=== PATIENT | female | born 1975 | race Caucasian/White ===

== ENCOUNTER → 2016-04-15 | Outpatient (REF) | payer MEDICARE, MEDICAID ==
[~2016-04-15] MED LIST: /ESOM40CA PO; /HYDR10T PO; /LEVE75TA PO; ABIL2TAB PO; ALEV220C2 PO; AMBI10TA PO; CLON2TAB PO; COLA50CA3 PO; DOXY100T PO; GABA-283 PO; GABA300C2 PO; GABA300C3 PO; HYDR-4274 PO; HYDR50CA2 PO; KEPP500T4 PO; KLON2TAB PO; LORA10TA2 PO; LYRI75CA PO; MELO7.5T6 PO; MINI1CAP PO; MIRA3350 PO; NEUR800T PO; NEXI20GR PO; NEXI40CA PO; NEXI40GR PO; NYST-6 TOP; OXYC1TAB23 PO; PRIS100T PO; REME15TA PO; TOPA200T PO; TRAM50TA2 PO; VALI2TAB PO; VENL37TA PO; VENL75CA PO; VIST50CA PO; ZOLP-189 PO
[2016-04-15 12:48] LABS: ALBUMIN 3.4 GM/DL (3.2-5.2); ALBUMIN/GLOBULIN RATIO 0.79 (1.00-1.93); ALKALINE PHOSPHATASE 55 U/L (45-117); ALT/SGPT 18 U/L (12-78); AST/SGOT 10 U/L (15-37); BILIRUBIN,DIRECT < 0.1 MG/DL (0.0-0.2); BILIRUBIN,TOTAL 0.3 MG/DL (0.2-1.0); TOTAL PROTEIN 7.7 GM/DL (6.4-8.2)
[2016-04-16 15:23] LABS: CONTROL LINE INT CTR LINE PRESENT; HIV SCRN NEGATIVE (NEGATIVE); HIV SCRN1 NEGATIVE (NEGATIVE)
[2016-04-17 10:42] LABS: HEPATITIS C QUANTITATION HCV Not Detected IU/mL (.)
== END ==
LOC: M SFHCPLAZ 09:16
PROVIDERS: ATTEND Family Medicine
DX: R73.03 Prediabetes (principal); B18.2 Chronic viral hepatitis C; Z20.6 Contact with and (suspected) exposure to human immunodeficiency virus [HIV]; Z79.891 Long term (current) use of opiate analgesic; Z79.899 Other long term (current) drug therapy
CPT/HCPCS: 80076; 83036; 87522; 87806; G0463

== ENCOUNTER → 2016-05-12 | Outpatient (REF) | payer MEDICARE, MEDICAID ==
[2016-05-12 13:46] LABS: MEAN CORPUSCULAR HEMOGLOBIN 30.6 pg (27.0-33.0); MEAN CORPUSCULAR HGB CONC 33.4 g/dl (32.0-36.5); MEAN CORPUSCULAR VOLUME 91.5 fl (80.0-96.0); WHITE BLOOD COUNT 6.7 K/mm3 (4.0-10.0)
[2016-05-12 14:35] LABS: PERCENT SATURATION 20.4 % (13.2-37.4)
== END ==
LOC: M SFHCPLAZ 11:12
PROVIDERS: ATTEND Family Medicine
DX: N92.1 Excessive and frequent menstruation with irregular cycle (principal)
CPT/HCPCS: 36415; 83550; 85027; G0463

== ENCOUNTER 2016-05-13 20:55 | Emergency (ER) | payer MEDICARE, MEDICAID ==
[2016-05-13] MEDS ORDERED: ONDANSETRON 4 MG ORAL DISINTEGRATING TAB (S0181) As Ordered ONE (21:57)
--- NOTE | 2016-05-13 22:06 | EDDOCDS ---
Physician Documentation [facility] Name: Doris Hermosillo Age: 40 yrs Sex: Female : 1975 Arrival Date: 05/13/2016 Time: 20:55 Bed TR1 Private MD: Yoni Proctor M. Disposition: 05/13/16 21:56 Discharged to Home/Self Care. Impression: Acute nasopharyngitis [common cold], Viral infection, unspecified. - Condition is Stable. - Discharge Instructions: Cool Mist Vaporizers, Upper Respiratory Infection, Adult, Beey-mb-Geik, Viral Infections, [id number]-[id number]. - Medication Reconciliation, Local Pharmacy Hours form. - Follow up: Yoni Proctor; When: Call to arrange an appointment; Reason: Further diagnostic work-up, Recheck today's complaints, Continuance of care. - Problem is new. - Symptoms are unchanged. Historical: - Allergies: Ceftin (Hives); - Home Meds: 1. doxycycline hyclate 100 mg Oral cap 1 cap every 12 hours 2. gabapentin 300 mg Oral cap 3 times per day 3. gabapentin 400 mg Oral cap 1 cap four times a day 4. Imitrex Oral Unknown as needed 5. loratadine 10 mg Oral tab 1 tab once daily 6. Nexium 40 mg Oral cpDR 1 cap once daily 7. Docusate Sodium Oral 8. ferrous sulfate 325 mg (65 mg iron) Oral TbEC daily 9. Truvada oral oral 1 tab once daily 10. trazodone 50 mg Oral tab 1 tab nightly 11. Pristiq 100 mg Oral Tb24 1 tab once daily 12. tramadol 50 mg Oral tab 1 tab three times a day - PMHx: Anxiety; back pain; Depression; GERD; MRSA; PTSD; Seizures; Substance Abuse; uterine fibroids; - PSHx: Cholecystectomy; ; Tubes in ears; - Social history: Smoking status: Patient uses tobacco products, current every day smoker. No barriers to communication noted, The patient speaks fluent Greenlandic. - Family history: Not pertinent. - : The pt / caregiver states he / she is not on anticoagulants. Home medication list is obtained from the patient. - Exposure Risk Screening:: None identified. 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 6 in. (167.64 cm) (R); Pain 4/10; 22:00 BP 116 / 58; Pulse 78; Resp 18; Temp 97.8(O); Pulse Ox 98% on R/A; Pain 0/10; jmb 20:57 Body Mass Index 40.03 (112.49 kg, 167.64 cm) gr2 MDM: 21:56 Ondansetron ODT Oral Disintegrating Tablet 4 mg PO once ordered. btw Administered Medications: 21:57 Drug: Ondansetron ODT 4 mg [ondansetron 4 mg disintegrating tablet (1 tabs)] Route: PO; allyn Signatures: Theron Bose PA PA btMulugeta Aguirre RN RN jmb Smith, Mallory, RN RN ms18 MTDD
--- NOTE | 2016-05-13 22:06 | EDDOCDS ---
Nurse's Notes [facility] Name: Doris Hermosillo Age: 40 yrs Sex: Female : 1975 Arrival Date: 05/13/2016 Time: 20:55 Bed TR1 Private MD: Yoni Proctor M. Diagnosis: Acute nasopharyngitis [common cold];Viral infection, unspecified Presentation: 05/13 21:04 Presenting complaint: Patient states: that she is having chest congestion, nasal ms18 congestion, NV, and lower abd pain. Adult Sepsis Screening: The patient does not have new or worsening altered mentation. Patient's respiratory rate is less than 22. Systolic blood pressure is greater than 100. Patient has a qSOFA score of 0- Negative Sepsis Screen. Suicide/Homicide risk assessment- the patient denies having any suicidal and/or homicidal ideations and does not present with any other emotional, behavioral or mental health complaints. Status: Patient is not a television service engineer or dependent. Transition of care: patient was not received from another setting of care. 21:04 Acuity: LEE Level 3 ms18 21:04 Method Of Arrival: Walkin/Carried/Asstd ms18 Triage Assessment: 21:10 General: Appears in no apparent distress, obese, uncomfortable, Behavior is appropriate ms18 for age, cooperative. Pain: Location: abdomen Pain currently is 8 out of 10 on a pain scale. HIV screening NA for this visit Offered previously. Neurological: No deficits noted. Respiratory: Airway is patent Respiratory effort is even, unlabored. GI: Reports nausea, vomiting. Derm: Skin is pink, warm & dry. 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 doxycycline hyclate 100 mg Oral cap 1 cap every 12 hours 2. gabapentin 300 mg Oral cap 3 times per day 3. gabapentin 400 mg Oral cap 1 cap four times a day 4. Imitrex Oral Unknown as needed 5. loratadine 10 mg Oral tab 1 tab once daily 6. Nexium 40 mg Oral cpDR 1 cap once daily 7. Docusate Sodium Oral 8. ferrous sulfate 325 mg (65 mg iron) Oral TbEC daily 9. Truvada oral oral 1 tab once daily 10. trazodone 50 mg Oral tab 1 tab nightly 11. Pristiq 100 mg Oral Tb24 1 tab once daily 12. tramadol 50 mg Oral tab 1 tab three times a day - PMHx: Anxiety; back pain; Depression; GERD; MRSA; PTSD; Seizures; Substance Abuse; uterine fibroids; - PSHx: Cholecystectomy; ; Tubes in ears; - Social history: Smoking status: Patient uses tobacco products, current every day smoker. No barriers to communication noted, The patient speaks fluent Dominican. - Family history: Not pertinent. - : The pt / caregiver states he / she is not on anticoagulants. Home medication list is obtained from the patient. - Exposure Risk Screening:: None identified. Screenin:00 Screening information is obtained from the patient. Fall risk: No risks identified. jmb Assistance ADL's: requires no assistance with activities of daily living. Abuse/DV Screen: The patient / caregiver reports he/she is: not in a situation that causes fear, pain or injury. Nutritional screening: No deficits noted. Advance Directives: Currently, there is no health care proxy. There is no active DNR order. There is no living will. There is no Power of Bill Recapitulation Clerk. home support is adequate. Assessment: 22:00 General: Patient instructed on discharge instructions. Patient asked if there were any b questions regarding discharge, patient stated no. Patient signed discharge instructions. Patient discharged in stable condition.. GI: Abdomen is obese, Bowel sounds present X 4 quads. Abd is soft X 4 quads. Vital Signs: 20:57 BP 113 / 78; Pulse 78; Resp 18 S; Temp 96.6(O); Pulse Ox 99% on R/A; Weight 112.49 kg gr2 (R); Height 5 ft. 6 in. (167.64 cm) (R); Pain 4/10; 22:00 BP 116 / 58; Pulse 78; Resp 18; Temp 97.8(O); Pulse Ox 98% on R/A; Pain 0/10; jmb 20:57 Body Mass Index 40.03 (112.49 kg, 167.64 cm) gr2 Vitals: 20:57 Log In Time: May 13, 2016 at 20:57. gr2 ED Course: 20:56 Patient visited by Jeanne Palmer. gr2 20:56 Yoni Proctor is Private Physician. gr2 20:56 Patient moved to Waiting gr2 20:58 Patient visited by Jeanne Palmer. gr2 20:58 Patient moved to Pre RCE gr2 21:06 Triage Initiated ms18 21:37 Patient moved to Triage 2 ms18 21:45 Theron Bose PA is PHCP. btw 21:45 Ole Mg DO is Attending Physician. btw 21:45 Patient visited by Theron Bose PA. btw 21:55 Yoni Proctor is Referral Physician. btw 22:00 The patient / caregiver is instructed regarding the plan of care and ED course. jmb 22:00 No IV's were initiated during this patient's visit. No procedures done that require jmb assistance. 22:05 Patient moved to TR1 mdr Administered Medications: 21:57 Drug: Ondansetron ODT 4 mg [ondansetron 4 mg disintegrating tablet (1 tabs)] Route: PO; jmb Order Results: There are currently no results for this order. Outcome: 21:56 Discharge ordered by Provider. btw 22:00 Discharge Assessment: Patient awake, alert and oriented x 3. No cognitive and/or jmb functional deficits noted. Patient verbalized understanding of disposition instructions. Patient awake and alert. obeys commands, Oriented to person, place and time. Patient verbalized understanding of disposition instructions. Patient has no functional deficits. patient administered narcotics - no. The following High Risk Discharge criteria are identified: None. Discharged to home ambulatory. Condition: stable. Discharge instructions given to patient, Instructed on discharge instructions, follow up and referral plans. Demonstrated understanding of instructions, Pt was receptive of discharge instructions/ teaching. No special radiology studies were completed. Property sent home with patient. 22:05 Patient left the ED. jmb Signatures: Theron Bose PA PA btw Jeanne Palmer gr2 Mulugeta ColónRN Yu Hall RN RN ms18 Virgilio Littlejohn, F[place]ON PHARMACEUTICAL REPRESENTATIVE mdr MTDD
--- NOTE | 2016-05-15 23:06 | EDDOCDS ---
Physician Documentation [facility] Name: Doris Hermosillo Age: 40 yrs Sex: Female : 1975 Arrival Date: 05/13/2016 Time: 20:55 Bed TR1 Private MD: Yoni Proctor M. Disposition: 05/13/16 21:56 Discharged to Home/Self Care. Impression: Acute nasopharyngitis [common cold], Viral infection, unspecified. - Condition is Stable. - Discharge Instructions: Cool Mist Vaporizers, Upper Respiratory Infection, Adult, [id number], Viral Infections, Qvsn-Mk-Hbir. - Medication Reconciliation, Local Pharmacy Hours form. - Follow up: Yoni Proctor; When: Call to arrange an appointment; Reason: Further diagnostic work-up, Recheck today's complaints, Continuance of care. - Problem is new. - Symptoms are unchanged. Historical: - Allergies: Ceftin (Hives); - Home Meds: 1. doxycycline hyclate 100 mg Oral cap 1 cap every 12 hours 2. gabapentin 300 mg Oral cap 3 times per day 3. gabapentin 400 mg Oral cap 1 cap four times a day 4. Imitrex Oral Unknown as needed 5. loratadine 10 mg Oral tab 1 tab once daily 6. Nexium 40 mg Oral cpDR 1 cap once daily 7. Docusate Sodium Oral 8. ferrous sulfate 325 mg (65 mg iron) Oral TbEC daily 9. Truvada oral oral 1 tab once daily 10. trazodone 50 mg Oral tab 1 tab nightly 11. Pristiq 100 mg Oral Tb24 1 tab once daily 12. tramadol 50 mg Oral tab 1 tab three times a day - PMHx: Anxiety; back pain; Depression; GERD; MRSA; PTSD; Seizures; Substance Abuse; uterine fibroids; - PSHx: Cholecystectomy; ; Tubes in ears; - Social history: Smoking status: Patient uses tobacco products, current every day smoker. No barriers to communication noted, The patient speaks fluent Estonian. - Family history: Not pertinent. - : The pt / caregiver states he / she is not on anticoagulants. Home medication list is obtained from the patient. - Exposure Risk Screening:: None identified. 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 6 in. (167.64 cm) (R); Pain 4/10; 22:00 BP 116 / 58; Pulse 78; Resp 18; Temp 97.8(O); Pulse Ox 98% on R/A; Pain 0/10; jmb 20:57 Body Mass Index 40.03 (112.49 kg, 167.64 cm) gr2 MDM: 21:56 Ondansetron ODT Oral Disintegrating Tablet 4 mg PO once ordered. btw : [facility] [place] Payment Agreement was scanned into [employer] and attached to record. gb 05/14 10:04 T-Sheet-- Draft Copy was scanned into [employer] and attached to record. gb Administered Medications: 05/13 21:57 Drug: Ondansetron ODT 4 mg [ondansetron 4 mg disintegrating tablet (1 tabs)] Route: PO; allyn Signatures: Heather Holly, Reg Reg gb Theron Bose PA PA btw Becker, Joshua, RN RN Yu Buchanan RN RN ms18 The chart was reviewed and I authenticate all verbal orders and agree with the evaluation and treatment provided.Attachments: 22:19 [facility] Payment Agreement gb 05/14 10:04 T-Sheet-- Draft Copy gb Chart Complete MTDD
--- NOTE | 2016-05-15 23:06 | EDDOCDS ---
Nurse's Notes [facility] Name: Doris Hermosillo Age: 40 yrs Sex: Female : 1975 Arrival Date: 05/13/2016 Time: 20:55 Bed TR1 Private MD: Yoni Proctor M. Diagnosis: Acute nasopharyngitis [common cold];Viral infection, unspecified Presentation: 05/13 21:04 Presenting complaint: Patient states: that she is having chest congestion, nasal ms18 congestion, NV, and lower abd pain. Adult Sepsis Screening: The patient does not have new or worsening altered mentation. Patient's respiratory rate is less than 22. Systolic blood pressure is greater than 100. Patient has a qSOFA score of 0- Negative Sepsis Screen. Suicide/Homicide risk assessment- the patient denies having any suicidal and/or homicidal ideations and does not present with any other emotional, behavioral or mental health complaints. Status: Patient is not a respiratory services manager or dependent. Transition of care: patient was not received from another setting of care. 21:04 Acuity: LEE Level 3 ms18 21:04 Method Of Arrival: Walkin/Carried/Asstd ms18 Triage Assessment: 21:10 General: Appears in no apparent distress, obese, uncomfortable, Behavior is appropriate ms18 for age, cooperative. Pain: Location: abdomen Pain currently is 8 out of 10 on a pain scale. HIV screening NA for this visit Offered previously. Neurological: No deficits noted. Respiratory: Airway is patent Respiratory effort is even, unlabored. GI: Reports nausea, vomiting. Derm: Skin is pink, warm & dry. 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 doxycycline hyclate 100 mg Oral cap 1 cap every 12 hours 2. gabapentin 300 mg Oral cap 3 times per day 3. gabapentin 400 mg Oral cap 1 cap four times a day 4. Imitrex Oral Unknown as needed 5. loratadine 10 mg Oral tab 1 tab once daily 6. Nexium 40 mg Oral cpDR 1 cap once daily 7. Docusate Sodium Oral 8. ferrous sulfate 325 mg (65 mg iron) Oral TbEC daily 9. Truvada oral oral 1 tab once daily 10. trazodone 50 mg Oral tab 1 tab nightly 11. Pristiq 100 mg Oral Tb24 1 tab once daily 12. tramadol 50 mg Oral tab 1 tab three times a day - PMHx: Anxiety; back pain; Depression; GERD; MRSA; PTSD; Seizures; Substance Abuse; uterine fibroids; - PSHx: Cholecystectomy; ; Tubes in ears; - Social history: Smoking status: Patient uses tobacco products, current every day smoker. No barriers to communication noted, The patient speaks fluent Burkinan. - Family history: Not pertinent. - : The pt / caregiver states he / she is not on anticoagulants. Home medication list is obtained from the patient. - Exposure Risk Screening:: None identified. Screenin:00 Screening information is obtained from the patient. Fall risk: No risks identified. jmb Assistance ADL's: requires no assistance with activities of daily living. Abuse/DV Screen: The patient / caregiver reports he/she is: not in a situation that causes fear, pain or injury. Nutritional screening: No deficits noted. Advance Directives: Currently, there is no health care proxy. There is no active DNR order. There is no living will. There is no Power of Building Construction Inspector. home support is adequate. Assessment: 22:00 General: Patient instructed on discharge instructions. Patient asked if there were any b questions regarding discharge, patient stated no. Patient signed discharge instructions. Patient discharged in stable condition.. GI: Abdomen is obese, Bowel sounds present X 4 quads. Abd is soft X 4 quads. Vital Signs: 20:57 BP 113 / 78; Pulse 78; Resp 18 S; Temp 96.6(O); Pulse Ox 99% on R/A; Weight 112.49 kg gr2 (R); Height 5 ft. 6 in. (167.64 cm) (R); Pain 4/10; 22:00 BP 116 / 58; Pulse 78; Resp 18; Temp 97.8(O); Pulse Ox 98% on R/A; Pain 0/10; jmb 20:57 Body Mass Index 40.03 (112.49 kg, 167.64 cm) gr2 Vitals: 20:57 Log In Time: May 13, 2016 at 20:57. gr2 ED Course: 20:56 Patient visited by Jeanne Palmer. gr2 20:56 Yoni Proctor is Private Physician. gr2 20:56 Patient moved to Waiting gr2 20:58 Patient visited by Jeanne Palmer. gr2 20:58 Patient moved to Pre RCE gr2 21:06 Triage Initiated ms18 21:37 Patient moved to Triage 2 ms18 21:45 Theron Bose PA is PHCP. btw 21:45 Ole Mg DO is Attending Physician. btw 21:45 Patient visited by Theron Bose PA. btw 21:55 Yoni Proctor is Referral Physician. btw 22:00 The patient / caregiver is instructed regarding the plan of care and ED course. jmb 22:00 No IV's were initiated during this patient's visit. No procedures done that require jmb assistance. 22:05 Patient moved to TR1 mdr 22:19 [facility] Payment Agreement was scanned into [employer] and attached to record. owen 05/14 10:04 T-Sheet-- Draft Copy was scanned into [employer] and attached to record. gb Administered Medications: 05/13 21:57 Drug: Ondansetron ODT 4 mg [ondansetron 4 mg disintegrating tablet (1 tabs)] Route: PO; jmb Order Results: There are currently no results for this order. Outcome: 21:56 Discharge ordered by Provider. btw 22:00 Discharge Assessment: Patient awake, alert and oriented x 3. No cognitive and/or jmb functional deficits noted. Patient verbalized understanding of disposition instructions. Patient awake and alert. obeys commands, Oriented to person, place and time. Patient verbalized understanding of disposition instructions. Patient has no functional deficits. patient administered narcotics - no. The following High Risk Discharge criteria are identified: None. Discharged to home ambulatory. Condition: stable. Discharge instructions given to patient, Instructed on discharge instructions, follow up and referral plans. Demonstrated understanding of instructions, Pt was receptive of discharge instructions/ teaching. No special radiology studies were completed. Property sent home with patient. 22:05 Patient left the ED. jmb Signatures: Heather Holly, Reg Reg Theron Bose PA PA btw Jeanne Palmer gr2 Mulugeta Colón RN RN jmb Smith, Mallory, RN RN ms18 Virgilio Littlejohn, [place] HUMAN RESOURCE CONSULTANT mdr Chart Complete MTDD
--- NOTE | 2016-05-15 23:06 | EDDOCDS ---
Physician Documentation [facility] Name: Doris Hermosillo Age: 40 yrs Sex: Female : 1975 Arrival Date: 05/13/2016 Time: 20:55 Bed TR1 Private MD: Yoni Proctor M. Disposition: 05/13/16 21:56 Discharged to Home/Self Care. Impression: Acute nasopharyngitis [common cold], Viral infection, unspecified. - Condition is Stable. - Discharge Instructions: Cool Mist Vaporizers, Upper Respiratory Infection, Adult, [id number], Viral Infections, [id number]-Yo-Myzb. - Medication Reconciliation, Local Pharmacy Hours form. - Follow up: Yoni Proctor; When: Call to arrange an appointment; Reason: Further diagnostic work-up, Recheck today's complaints, Continuance of care. - Problem is new. - Symptoms are unchanged. Historical: - Allergies: Ceftin (Hives); - Home Meds: 1. doxycycline hyclate 100 mg Oral cap 1 cap every 12 hours 2. gabapentin 300 mg Oral cap 3 times per day 3. gabapentin 400 mg Oral cap 1 cap four times a day 4. Imitrex Oral Unknown as needed 5. loratadine 10 mg Oral tab 1 tab once daily 6. Nexium 40 mg Oral cpDR 1 cap once daily 7. Docusate Sodium Oral 8. ferrous sulfate 325 mg (65 mg iron) Oral TbEC daily 9. Truvada oral oral 1 tab once daily 10. trazodone 50 mg Oral tab 1 tab nightly 11. Pristiq 100 mg Oral Tb24 1 tab once daily 12. tramadol 50 mg Oral tab 1 tab three times a day - PMHx: Anxiety; back pain; Depression; GERD; MRSA; PTSD; Seizures; Substance Abuse; uterine fibroids; - PSHx: Cholecystectomy; ; Tubes in ears; - Social history: Smoking status: Patient uses tobacco products, current every day smoker. No barriers to communication noted, The patient speaks fluent Latvian. - Family history: Not pertinent. - : The pt / caregiver states he / she is not on anticoagulants. Home medication list is obtained from the patient. - Exposure Risk Screening:: None identified. 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 6 in. (167.64 cm) (R); Pain 4/10; 22:00 BP 116 / 58; Pulse 78; Resp 18; Temp 97.8(O); Pulse Ox 98% on R/A; Pain 0/10; jmb 20:57 Body Mass Index 40.03 (112.49 kg, 167.64 cm) gr2 MDM: 21:56 Ondansetron ODT Oral Disintegrating Tablet 4 mg PO once ordered. btw : [facility] Payment Agreement was scanned into [employer] and attached to record. gb 05/14 10:04 T-Sheet-- Draft Copy was scanned into [employer] and attached to record. gb Administered Medications: 05/13 21:57 Drug: Ondansetron ODT 4 mg [ondansetron 4 mg disintegrating tablet (1 tabs)] Route: PO; allyn Signatures: Heather Holly, Reg Reg gb Theron Bose PA PA btw Becker, Joshua, RN RN Yu Buchanan RN RN ms18 The chart was reviewed and I authenticate all verbal orders and agree with the evaluation and treatment provided.Attachments: 22:19 [facility] Payment Agreement gb 05/14 10:04 T-Sheet-- Draft Copy gb Chart Complete MTDD
== END 2016-05-13 22:05 | disposition home or self-care (01) ==
LOC: M ED 20:55
DX: J06.9 Acute upper respiratory infection, unspecified (principal); F41.9 Anxiety disorder, unspecified; M54.9 Dorsalgia, unspecified; F32.9 Major depressive disorder, single episode, unspecified; K21.9 Gastro-esophageal reflux disease without esophagitis; F43.10 Post-traumatic stress disorder, unspecified; G40.909 Epilepsy, unspecified, not intractable, without status epilepticus; F19.10 Other psychoactive substance abuse, uncomplicated; Z86.14 Personal history of Methicillin resistant Staphylococcus aureus infection; Z96.22 Myringotomy tube(s) status; Z72.0 Tobacco use; Z79.899 Other long term (current) drug therapy; Z88.1 Allergy status to other antibiotic agents

== ENCOUNTER 2016-07-13 16:01 | Emergency (ER) | payer MEDICARE, MEDICAID ==
[~2016-07-13] VITALS: Ht 165.1 cm; Wt 108.9 kg
[~2016-07-13 16:01] MED LIST changes: +GABA-282 PO; -GABA300C3 PO
[2016-07-13 16:02] VITALS: BP 158/78
[2016-07-13] MEDS ORDERED: TRAZ50TA4 (16:09)
[2016-07-13] MEDS ORDERED: ULTR50TA PO (16:41)
[2016-07-13] MEDS ORDERED: BACT800T5 PO (16:41)
== END 2016-07-13 18:09 | disposition home or self-care (01) ==
LOC: M ED 17:00
DX: L03.311 Cellulitis of abdominal wall (principal); L03.115 Cellulitis of right lower limb; B95.62 Methicillin resistant Staphylococcus aureus infection as the cause of diseases classified elsewhere; B19.20 Unspecified viral hepatitis C without hepatic coma; Z88.1 Allergy status to other antibiotic agents; Z79.899 Other long term (current) drug therapy

== ENCOUNTER 2016-08-09 15:12 | Emergency (ER) | payer MEDICARE, MEDICAID ==
[~2016-08-09] VITALS: Ht 165.1 cm; Wt 108.9 kg
[~2016-08-09 15:12] MED LIST changes: +BACT800T5 PO; +TRAZ50TA4; +ULTR50TA PO
[2016-08-09] MEDS ORDERED: ALEV220T26 PO (15:21)
[2016-08-09] MEDS ORDERED: BACTRIM 160MG/800MG DS TAB PO ONE (16:15)
[2016-08-09] MEDS ORDERED: MORPHINE 4 MG/ML 1ML SYRINGE IV ONE (16:15)
[2016-08-09] MEDS: LR 1,000 ML IV SCH ×4 (16:30→19:52)
[2016-08-09 16:47] LABS: BASO % 0.2 % (0.0-1.0); EOS # 0.1 K/mm3 (0.0-0.50); EOS % 0.7 % (0.0-3.0); LARGE UNSTAINED CELL # 0.2 K/mm3 (0.0-0.4); LARGE UNSTAINED CELL % 1.8 % (0.0-4.0); LYMPH # 2.9 K/mm3 (1.5-4.5); LYMPH % 23.5 % (24.0-44.0); MEAN CORPUSCULAR HEMOGLOBIN 30.3 pg (27.0-33.0); MEAN CORPUSCULAR HGB CONC 33.1 g/dl (32.0-36.5); MEAN CORPUSCULAR VOLUME 91.6 fl (80.0-96.0); MONO # 0.8 K/mm3 (0.0-0.8); MONO % 6.5 % (0.0-5.0); NEUTROPHILS # 8.5 K/mm3 (1.8-7.7); NEUTROPHILS % 67.4 % (36.0-66.0); PLATELET COUNT, AUTOMATED 273 k/mm3 (150-450); RED CELL DISTRIBUTION WIDTH 15.1 % (11.5-14.5); WHITE BLOOD COUNT 12.6 K/mm3 (4.0-10.0)
[2016-08-09 17:04] LABS: CALCIUM LEVEL 8.9 MG/DL (8.5-10.1); CREATININE FOR GFR 1.15 MG/DL (0.55-1.02); GLOMERULAR FILTRATION RATE 55.9 (>60)
[2016-08-09 17:05] LABS: METHADONE URINE NEGATIVE (NEGATIVE)
[2016-08-09] MEDS ORDERED: PERCOCET 5MG/325MG TAB PO ONE ×2 (17:45→19:30)
[2016-08-09] MEDS ORDERED: PERC5TAB6 PO (19:10)
[2016-08-09] MEDS ORDERED: BACT800T5 PO (19:10)
[2016-08-09 19:23] VITALS: BP 141/85
[2016-08-09] MEDS ORDERED: MUPIROCIN 2% CREAM 30GM TOP ONE (19:30)
== END 2016-08-09 19:55 | disposition home or self-care (01) ==
LOC: M ED 15:33
DX: L02.31 Cutaneous abscess of buttock (principal); Z79.899 Other long term (current) drug therapy; Z88.1 Allergy status to other antibiotic agents

== ENCOUNTER → 2016-08-11 | Outpatient (REF) | payer MEDICARE ==
[~2016-08-11] MED LIST changes: +ALEV220T26 PO; +PERC5TAB6 PO
== END ==
LOC: M SFHCPLAZ 13:15
PROVIDERS: ATTEND Physician Assistant
DX: L02.91 Cutaneous abscess, unspecified (principal)
CPT/HCPCS: 87070; 87077; 87186; 87205; G0463

== ENCOUNTER → 2016-10-06 | Outpatient (CLI) | payer OTHER, MEDICAID ==
[~2016-10-06] MED LIST changes: +ACET30TAB PO; +CLEO300C2 PO; +DESV100T3; +DULC100C PO; +FERR325T3 PO; +GABA800T PO; -HYDR-4274 PO; +HYDR50TA70 PO; +IBUP80TA PO; +LORA0.5T11 PO; -MELO7.5T6 PO; +MELO7.5T7 PO; +MUPI2OI EXT; +NAPR500T PO; +NORCOTAB PO; +PERC5TAB12 PO; -PERC5TAB6 PO; +ROBA500T PO; +TRAZ50TA11; -TRAZ50TA4; +TRUVTAB PO; +TYLE325T5 PO; -ULTR50TA PO; +ULTR50TA8 PO
== END ==
LOC: M OUTALCOH 07:46
PROVIDERS: ATTEND Psychiatry & Neurology Psychiatry
DX: Z13.9 Encounter for screening, unspecified (principal); F13.20 Sedative, hypnotic or anxiolytic dependence, uncomplicated; F41.8 Other specified anxiety disorders; F11.20 Opioid dependence, uncomplicated; F14.20 Cocaine dependence, uncomplicated

== ENCOUNTER 2016-10-21 11:00 | Outpatient (RCR) | payer MEDICARE, MEDICAID ==
[~2016-10-21 11:00] MED LIST changes: -ACET30TAB PO; -CLEO300C2 PO; -DESV100T3; -DULC100C PO; -FERR325T3 PO; -GABA800T PO; -IBUP80TA PO; -LORA0.5T11 PO; -MUPI2OI EXT; -NAPR500T PO; -NORCOTAB PO; -ROBA500T PO; -TRUVTAB PO; -TYLE325T5 PO
[2016-10-24] MEDS ORDERED: NORCOTAB PO (15:35)
[2016-10-24] MEDS ORDERED: BACT800T5 PO (15:35)
== END 2016-10-26 ==
LOC: M OUTALCOH 11:00
PROVIDERS: ATTEND Psychiatry & Neurology Psychiatry
DX: F13.20 Sedative, hypnotic or anxiolytic dependence, uncomplicated (principal); Z72.0 Tobacco use

== ENCOUNTER 2016-10-24 15:11 | Emergency (ER) | payer MEDICARE, MEDICAID ==
[~2016-10-24] VITALS: Ht 165.1 cm; Wt 112.7 kg
[2016-10-24 15:12] VITALS: BP 188/93
[2016-10-24] MEDS ORDERED: NORCOTAB PO (15:35)
[2016-10-24] MEDS ORDERED: BACT800T5 PO (15:35)
== END 2016-10-24 15:54 | disposition home or self-care (01) ==
LOC: M ED 15:11
DX: A49.02 Methicillin resistant Staphylococcus aureus infection, unspecified site (principal); L03.90 Cellulitis, unspecified; B19.20 Unspecified viral hepatitis C without hepatic coma; K21.9 Gastro-esophageal reflux disease without esophagitis; Z86.14 Personal history of Methicillin resistant Staphylococcus aureus infection; F17.200 Nicotine dependence, unspecified, uncomplicated; F19.90 Other psychoactive substance use, unspecified, uncomplicated; Z88.1 Allergy status to other antibiotic agents; Z79.899 Other long term (current) drug therapy

== ENCOUNTER → 2016-10-26 | Outpatient (REF) | payer MEDICARE ==
[~2016-10-26] MED LIST changes: +ACET30TAB PO; +CLEO300C2 PO; +DESV100T3; +DULC100C PO; +FERR325T3 PO; +GABA800T PO; +IBUP80TA PO; +LORA0.5T11 PO; +MUPI2OI EXT; +NAPR500T PO; +NORCOTAB PO; +ROBA500T PO; +TRUVTAB PO; +TYLE325T5 PO
== END ==
LOC: M LABDRAWP 15:37
PROVIDERS: ATTEND Family Medicine
DX: L03.116 Cellulitis of left lower limb (principal)
CPT/HCPCS: 10060; 87070; 87077; 87186; 87205; G0463

== ENCOUNTER 2016-11-14 10:17 | Emergency (ER) | payer MEDICARE, MEDICAID ==
[~2016-11-14] VITALS: Ht 165.1 cm; Wt 115.9 kg
[~2016-11-14 10:17] MED LIST changes: -ACET30TAB PO; -CLEO300C2 PO; -DESV100T3; -DULC100C PO; -FERR325T3 PO; -GABA800T PO; -IBUP80TA PO; -LORA0.5T11 PO; -MUPI2OI EXT; -NAPR500T PO; -ROBA500T PO; -TRUVTAB PO; -TYLE325T5 PO
[2016-11-14 10:18] VITALS: BP 152/69
[2016-11-14] MEDS ORDERED: NORCOTAB PO (10:57)
[2016-11-14] MEDS ORDERED: CLEO300C2 PO (10:57)
[2016-11-14] MEDS ORDERED: NORCO, ANEXSIA 5/325MG TABLET (HYDROcodone/ACETAMINOPHEN) PO ONE (11:00)
== END 2016-11-14 11:14 | disposition home or self-care (01) ==
LOC: M ED 10:17
DX: L02.31 Cutaneous abscess of buttock (principal); L02.211 Cutaneous abscess of abdominal wall; B19.20 Unspecified viral hepatitis C without hepatic coma; G40.919 Epilepsy, unspecified, intractable, without status epilepticus; F41.9 Anxiety disorder, unspecified; F33.9 Major depressive disorder, recurrent, unspecified; F14.10 Cocaine abuse, uncomplicated; F17.210 Nicotine dependence, cigarettes, uncomplicated; Z88.1 Allergy status to other antibiotic agents; Z88.5 Allergy status to narcotic agent; Z79.899 Other long term (current) drug therapy; Z79.2 Long term (current) use of antibiotics

== ENCOUNTER 2016-11-20 13:29 | Emergency (ER) | payer MEDICARE, MEDICAID ==
[~2016-11-20] VITALS: Ht 165.1 cm; Wt 110.4 kg
[~2016-11-20 13:29] MED LIST changes: +CLEO300C2 PO
[2016-11-20] MEDS ORDERED: NORCOTAB PO (14:42)
[2016-11-20 14:50] VITALS: BP 136/73
== END 2016-11-20 14:53 | disposition home or self-care (01) ==
LOC: M ED 13:29
DX: L02.31 Cutaneous abscess of buttock (principal); L02.211 Cutaneous abscess of abdominal wall; L03.311 Cellulitis of abdominal wall; L03.317 Cellulitis of buttock; E11.9 Type 2 diabetes mellitus without complications; Z88.1 Allergy status to other antibiotic agents; Z79.899 Other long term (current) drug therapy

== ENCOUNTER 2016-11-24 15:34 | Outpatient (RCR) | payer MEDICARE, MEDICAID | END 2016-11-26 | LOC: M OUTALCOH 15:34 | PROVIDERS: ATTEND Psychiatry & Neurology Psychiatry | DX: F13.20 Sedative, hypnotic or anxiolytic dependence, uncomplicated (principal); Z72.0 Tobacco use ==

== ENCOUNTER 2016-11-29 18:24 | Emergency (ER) | payer MEDICARE, MEDICAID ==
[~2016-11-29] VITALS: Ht 165.1 cm; Wt 110.5 kg
[2016-11-29] MEDS ORDERED: ACET30TAB PO (20:10)
[2016-11-29] MEDS ORDERED: ACETAMINOPH W/CODEINE #3 TAB UD PO ONE (20:15)
[2016-11-29 20:32] VITALS: BP 131/82
[2016-11-30] MEDS ORDERED: NAPR500T PO (12:13)
[2016-11-30] MEDS ORDERED: CLEO300C2 PO (12:13)
[2016-11-30] MEDS ORDERED: TYLE325T5 PO (12:13)
== END 2016-11-29 20:34 | disposition home or self-care (01) ==
LOC: M ED 18:24
DX: L02.211 Cutaneous abscess of abdominal wall (principal); G40.919 Epilepsy, unspecified, intractable, without status epilepticus; B19.20 Unspecified viral hepatitis C without hepatic coma; F41.9 Anxiety disorder, unspecified; F33.9 Major depressive disorder, recurrent, unspecified; F19.10 Other psychoactive substance abuse, uncomplicated; F17.210 Nicotine dependence, cigarettes, uncomplicated; Z88.1 Allergy status to other antibiotic agents; Z79.2 Long term (current) use of antibiotics; Z79.899 Other long term (current) drug therapy

== ENCOUNTER 2016-11-30 09:39 | Emergency (ER) | payer MEDICARE, MEDICAID ==
[~2016-11-30] VITALS: Ht 165.1 cm; Wt 117.5 kg
[~2016-11-30 09:39] MED LIST changes: +ACET30TAB PO
[2016-11-30] MEDS ORDERED: CLINDAMYCIN 150 MG CAP PO ONE (11:00)
[2016-11-30] MEDS ORDERED: BACITRACIN OINT 30GM TOP PRN (11:30)
[2016-11-30] MEDS ORDERED: KETOROLAC 30 MG/ML VIAL (J1885) IM ONE (11:30)
--- NOTE | 2016-11-30 12:04 | REP ---
Clinical: Left gluteal cellulitis. Technique: Real time davis scale evaluation using linear high frequency transducer. Findings: Directed ultrasound examination of the left gluteal region demonstrates subcutaneous edema and small superficial complex fluid collection measuring 11 x 6 x 4 mm suggesting forming abscess. Impression: Subcutaneous edema and small forming abscess. Signed by Jose Pitt MD 11/30/2016 11:54 A
[2016-11-30] MEDS ORDERED: NAPR500T PO (12:13)
[2016-11-30] MEDS ORDERED: CLEO300C2 PO (12:13)
[2016-11-30] MEDS ORDERED: TYLE325T5 PO (12:13)
[2016-11-30 12:19] VITALS: BP 132/80
== END 2016-11-30 12:23 | disposition home or self-care (01) ==
LOC: M ED 09:39
DX: L02.31 Cutaneous abscess of buttock (principal); L02.211 Cutaneous abscess of abdominal wall; Z72.89 Other problems related to lifestyle; G40.909 Epilepsy, unspecified, not intractable, without status epilepticus; F41.9 Anxiety disorder, unspecified; F32.9 Major depressive disorder, single episode, unspecified; Z86.14 Personal history of Methicillin resistant Staphylococcus aureus infection; Z86.19 Personal history of other infectious and parasitic diseases; M51.9 Unspecified thoracic, thoracolumbar and lumbosacral intervertebral disc disorder; M79.605 Pain in left leg; F14.10 Cocaine abuse, uncomplicated; Z88.1 Allergy status to other antibiotic agents; Z79.899 Other long term (current) drug therapy; Z79.2 Long term (current) use of antibiotics

== ENCOUNTER 2016-12-16 12:22 | Outpatient (CLI) | payer MEDICARE, MEDICAID ==
[~2016-12-16] VITALS: Ht 162.6 cm; Wt 119.1 kg
[~2016-12-16 12:22] MED LIST changes: +NAPR500T PO; +TYLE325T5 PO
[2016-12-16] MEDS ORDERED: DALBAVANCIN 1,500 MG in D5W 500 ML IV ONE (13:00)
[2016-12-16] MEDS ORDERED: HYDR50TA70 PO (17:05)
[2016-12-16] MEDS ORDERED: GABA800T PO (17:05)
[2016-12-16] MEDS ORDERED: MUPI2OI EXT (17:05)
[2016-12-16] MEDS ORDERED: FERR325T3 PO (17:05)
[2016-12-16] MEDS ORDERED: TRAM50TA2 PO (17:05)
[2016-12-16] MEDS ORDERED: LORA0.5T11 PO (17:05)
[2016-12-16] MEDS ORDERED: TRUVTAB PO (17:05)
[2016-12-16] MEDS ORDERED: DULC100C PO (17:05)
== END 2016-12-16 14:15 | disposition home or self-care (01) ==
LOC: M INFU 12:22
PROVIDERS: ATTEND Family Medicine
DX: A49.02 Methicillin resistant Staphylococcus aureus infection, unspecified site (principal); K21.9 Gastro-esophageal reflux disease without esophagitis; B18.2 Chronic viral hepatitis C; Z86.19 Personal history of other infectious and parasitic diseases; G40.909 Epilepsy, unspecified, not intractable, without status epilepticus; Z88.1 Allergy status to other antibiotic agents; Z79.891 Long term (current) use of opiate analgesic; Z79.899 Other long term (current) drug therapy
CPT/HCPCS: 96365; J0875

== ENCOUNTER 2017-01-14 13:50 | Outpatient (CLI) | payer MEDICARE, MEDICAID ==
[~2017-01-14] VITALS: Ht 162.6 cm; Wt 119.1 kg
[~2017-01-14 13:50] MED LIST changes: +DULC100C PO; +FERR325T3 PO; +GABA800T PO; +LORA0.5T11 PO; +MUPI2OI EXT; +TRUVTAB PO
[2017-01-14] MEDS ORDERED: DALBAVANCIN 1,500 MG in D5W 500 ML IV SCH (15:00)
[2017-01-14] MEDS ORDERED: DESV100T3 (16:41)
[2017-01-14] MEDS ORDERED: NORCOTAB PO (18:47)
[2017-01-14] MEDS ORDERED: ROBA500T PO (18:47)
[2017-01-14] MEDS ORDERED: IBUP80TA PO (18:47)
== END 2017-01-14 16:00 | disposition home or self-care (01) ==
LOC: M INFU 13:50
PROVIDERS: ATTEND Family Medicine
DX: A49.02 Methicillin resistant Staphylococcus aureus infection, unspecified site (principal); Z88.1 Allergy status to other antibiotic agents; F17.210 Nicotine dependence, cigarettes, uncomplicated; Z79.899 Other long term (current) drug therapy

== ENCOUNTER 2017-01-14 16:24 | Emergency (ER) | payer MEDICARE, MEDICAID ==
[~2017-01-14] VITALS: Ht 165.1 cm; Wt 112.7 kg
[2017-01-14] MEDS ORDERED: DESV100T3 (16:41)
[2017-01-14] MEDS ORDERED: METHOCARBAMOL 500 MG TAB PO ONE (18:45)
[2017-01-14] MEDS ORDERED: KETOROLAC 60 MG/2 ML VIAL (J1885) IM ONE (18:45)
[2017-01-14] MEDS ORDERED: NORCO, ANEXSIA 5/325MG TABLET (HYDROcodone/ACETAMINOPHEN) PO ONE (18:45)
[2017-01-14] MEDS ORDERED: NORCOTAB PO (18:47)
[2017-01-14] MEDS ORDERED: IBUP80TA PO (18:47)
[2017-01-14] MEDS ORDERED: ROBA500T PO (18:47)
[2017-01-14 19:34] VITALS: BP 154/80
== END 2017-01-14 19:36 | disposition home or self-care (01) ==
LOC: M ED 16:24
DX: A49.02 Methicillin resistant Staphylococcus aureus infection, unspecified site (principal); Z88.1 Allergy status to other antibiotic agents; F17.210 Nicotine dependence, cigarettes, uncomplicated; Z79.899 Other long term (current) drug therapy
CPT/HCPCS: 99282; J0875; J1885

== ENCOUNTER → 2017-01-26 | Outpatient (REF) | payer MEDICARE, MEDICAID ==
[~2017-01-26] MED LIST changes: +DESV100T3; +IBUP80TA PO; +ROBA500T PO
[2017-01-26 15:58] LABS: BASO % 0.4 % (0.0-1.0); EOS # 0.1 10^3/uL (0.0-0.50); EOS % 0.5 % (0.0-3.0); IMMATURE GRANULOCYTE % 0.5 % (0-0); LYMPH % 41.8 % (24.0-44.0); MEAN CORPUSCULAR HEMOGLOBIN 28.6 pg (27.0-33.0); MEAN CORPUSCULAR HGB CONC 32.3 g/dl (32.0-36.5); MEAN CORPUSCULAR VOLUME 88.5 fl (80.0-96.0); MONO # 0.8 10^3/uL (0.0-0.8); NEUTROPHILS # 5.5 10^3/uL (1.8-7.7); NEUTROPHILS % 49.8 % (36.0-66.0); PLATELET COUNT, AUTOMATED 288 10^3/uL (150-450); RED CELL DISTRIBUTION WIDTH 15.9 % (11.5-14.5)
[2017-01-26 16:01] LABS: LYMPH # 4.6 10^3/uL (1.5-4.5)
[2017-01-26 16:02] LABS: POSITIVE DIFF Y
[2017-01-26 16:41] LABS: ALBUMIN 3.8 GM/DL (3.2-5.2); ALBUMIN/GLOBULIN RATIO 0.95 (1.00-1.93); ALKALINE PHOSPHATASE 47 U/L (45-117); ALT/SGPT 18 U/L (12-78); ANION GAP 6 MEQ/L (8-16); AST/SGOT 11 U/L (7-37); BILIRUBIN,TOTAL 0.3 MG/DL (0.2-1.0); BLOOD UREA NITROGEN 9 MG/DL (7-18); CALCIUM LEVEL 8.7 MG/DL (8.5-10.1); CARBON DIOXIDE LEVEL 26 MEQ/L (21-32); CHLORIDE LEVEL 106 MEQ/L (98-107); CREATININE FOR GFR 1.05 MG/DL (0.55-1.02); GLOMERULAR FILTRATION RATE > 60.0 (>58); GLUCOSE, FASTING 69 MG/DL (70-105); IMMUNOGLOBULIN G 1730 MG/DL (681-1648); IMMUNOGLOBULIN M 281 MG/DL (40-230); POTASSIUM SERUM 4.6 MEQ/L (3.5-5.1); SODIUM LEVEL 138 MEQ/L (136-145); TOTAL PROTEIN 7.8 GM/DL (6.4-8.2)
[2017-01-29 00:06] LABS: HEPATITIS C QUANTITATION HCV Not Detected IU/mL (.)
== END ==
LOC: M SFHCPLAZ 12:36
PROVIDERS: ATTEND Internal Medicine Infectious Disease
DX: Z20.6 Contact with and (suspected) exposure to human immunodeficiency virus [HIV] (principal); B18.2 Chronic viral hepatitis C; A49.02 Methicillin resistant Staphylococcus aureus infection, unspecified site
CPT/HCPCS: 80053; 82784; 85025; 87389; 87522; G0463

== ENCOUNTER 2017-02-04 07:17 | Outpatient (CLI) | payer MEDICARE, MEDICAID ==
[~2017-02-04] VITALS: Ht 162.6 cm; Wt 119.1 kg
== END 2017-02-04 08:40 | disposition home or self-care (01) ==
LOC: M INFU 07:17
PROVIDERS: ATTEND Family Medicine
DX: A49.02 Methicillin resistant Staphylococcus aureus infection, unspecified site (principal); Z53.9 Procedure and treatment not carried out, unspecified reason

== ENCOUNTER → 2017-02-11 | Outpatient (CLI) | payer MEDICARE, MEDICAID ==
[~2017-02-11] MED LIST changes: +BACL1TAB9 PO; +MEDR4PAK PO; +OXYC-517 PO
--- NOTE | 2017-02-11 15:07 | REP ---
Clinical: Lumbago. Technique: AP, lateral, flexion/extension, bilateral oblique coned-down views of the lumbosacral spine. Comparison: 01/02/2013. Findings: Examination is significantly limited due to underpenetration and body habitus. Alignment and lordosis maintained without acute fracture / compression injury or subluxation. Advanced degenerative disc osteophyte complex at the L4-5 and L5-S1 levels includes osteophytosis, endplate sclerosis, disc space narrowing and hypertrophic facet changes. Impression: Early advanced degenerative changes at the L4-5 and L5-S1 levels. Signed by Jose Pitt MD 02/11/2017 02:58 P
== END ==
LOC: M RAD 13:23
PROVIDERS: ATTEND Family Medicine
DX: M54.41 Lumbago with sciatica, right side (principal)

== ENCOUNTER 2017-02-19 10:09 | Emergency (ER) | payer MEDICARE, MEDICAID ==
[~2017-02-19] VITALS: Ht 162.6 cm; Wt 121.8 kg
[~2017-02-19 10:09] MED LIST changes: -BACL1TAB9 PO; -MEDR4PAK PO; -OXYC-517 PO
[2017-02-19 10:17] VITALS: BP 186/84
[2017-02-19] MEDS ORDERED: OXYC-517 PO (10:23)
[2017-02-19] MEDS ORDERED: BACL1TAB9 PO (10:23)
[2017-02-19] MEDS ORDERED: GABA-283 PO (10:23)
[2017-02-19] MEDS ORDERED: MEDR4PAK PO (10:49)
== END 2017-02-19 10:55 | disposition home or self-care (01) ==
LOC: M ED 10:09
DX: M51.36 Other intervertebral disc degeneration, lumbar region (principal); M54.42 Lumbago with sciatica, left side; F17.210 Nicotine dependence, cigarettes, uncomplicated; Z79.899 Other long term (current) drug therapy; Z88.1 Allergy status to other antibiotic agents

== ENCOUNTER 2017-02-19 19:21 | Emergency (ER) | payer MEDICARE, MEDICAID ==
[~2017-02-19] VITALS: Ht 162.6 cm; Wt 121.8 kg
[~2017-02-19 19:21] MED LIST changes: +BACL1TAB9 PO; +MEDR4PAK PO; +OXYC-517 PO
[2017-02-19 19:29] VITALS: BP 173/84
[2017-02-19] MEDS ORDERED: MORPHINE 2 MG/ML 1ML SYRINGE IM ONE (20:00)
== END 2017-02-19 20:34 | disposition home or self-care (01) ==
LOC: M ED 19:21
DX: M51.36 Other intervertebral disc degeneration, lumbar region (principal); M54.42 Lumbago with sciatica, left side; F17.210 Nicotine dependence, cigarettes, uncomplicated; Z79.899 Other long term (current) drug therapy; Z88.1 Allergy status to other antibiotic agents

== ENCOUNTER → 2017-03-08 | Outpatient (CLI) | payer MEDICARE, MEDICAID ==
--- NOTE | 2017-03-08 11:20 | REP ---
MRI LUMBAR SPINE WITHOUT CONTRAST: HISTORY: Acute bilateral low back pain with right-sided sciatica. Comparison CT study July 12, 2014. Comparison radiographs February 11, 2017. TECHNIQUE: Sagittal and axial T1 and T2-weighted scans are acquired in the usual fashion with and without fat saturation. Sequences include spin echo, turbo spin-echo, and STIR imaging sequences. MRI FINDINGS: Lumbar vertebral body heights are preserved. There is advanced degenerative disc disease in the L4-5 disc level with narrowing and decreased disc space signal intensity. There are extensive reactive marrow edematous changes on either side of the 4-5 disc. Other lumbar disc spaces are preserved. Axial and sagittal images at the L4-5 level demonstrate a very large disc protrusion. This extends caudally posterior to the L5 vertebral body. This large disc extrusion spans the posterior margin of the disc and produces significant thecal sac compression. There is moderate central canal stenosis. Mid sagittal AP dimension of the thecal sac at this level is 6 mm. There is minimal facet hypertrophy at L4-5. These changes are similar to the changes described in June [address] scanning. This disc protrusion was visible previously and its margin with calcified at that time. There is again noted mild bilateral neural foraminal narrowing at L4-5 is probably unchanged from prior CT. At L5-S1, there is minimal facet hypertrophy. No other abnormality. At L3-4, L2-3, and L1-2 no abnormalities seen. Normal caliber aorta. No extra spinal abnormality is observed. IMPRESSION: Chronic but very large L4-5 disc herniation with moderate thecal sac compression and central canal stenosis. Bilateral L4-5 neural foraminal narrowing. Reactive marrow changes. Similar findings were seen in June [address] scanning. Signed by Rad Greenwood MD 03/08/2017 12:39 P
== END ==
LOC: M RAD 07:22
PROVIDERS: ATTEND Family Medicine
DX: M54.5 Low back pain (principal)

== ENCOUNTER → 2017-05-06 | Outpatient (REF) | payer MEDICARE, MEDICAID | LOC: M SFHCPLAZ 12:21 | DX: A49.02 Methicillin resistant Staphylococcus aureus infection, unspecified site (principal) | CPT/HCPCS: 87186; 87205 ==

== ENCOUNTER → 2017-05-13 | Outpatient (REF) | payer MEDICARE, MEDICAID | LOC: M SFHCPLAZ 11:36 | DX: Z20.6 Contact with and (suspected) exposure to human immunodeficiency virus [HIV] (principal) ==

== ENCOUNTER 2017-06-10 14:22 | Outpatient (CLI) | payer MEDICARE, MEDICAID ==
[2017-06-10] MEDS: DALBAVANCIN 1,500 MG in D5W 500 ML IV (15:23)
== END 2017-06-10 16:30 | disposition home or self-care (01) ==
LOC: M INFU 14:22
DX: L03.90 Cellulitis, unspecified (principal); K73.9 Chronic hepatitis, unspecified; F32.9 Major depressive disorder, single episode, unspecified; F41.9 Anxiety disorder, unspecified; K21.9 Gastro-esophageal reflux disease without esophagitis; M54.5 Low back pain; F17.210 Nicotine dependence, cigarettes, uncomplicated; Z79.891 Long term (current) use of opiate analgesic; Z79.899 Other long term (current) drug therapy; Z88.8 Allergy status to other drugs, medicaments and biological substances
CPT/HCPCS: J0875

== ENCOUNTER 2017-07-10 08:12 | Emergency (ER) | payer MEDICARE, MEDICAID ==
[2017-07-10] MEDS: PERCOCET 5MG/325MG TAB PO (09:42)
== END 2017-07-10 10:55 | disposition home or self-care (01) ==
LOC: M ED 08:12
DX: S93.401A Sprain of unspecified ligament of right ankle, initial encounter (principal); X58.XXXA Exposure to other specified factors, initial encounter; Y92.009 Unspecified place in unspecified non-institutional (private) residence as the place of occurrence of the external cause; G40.909 Epilepsy, unspecified, not intractable, without status epilepticus; Z79.899 Other long term (current) drug therapy; Z88.1 Allergy status to other antibiotic agents
CPT/HCPCS: 73590

== ENCOUNTER → 2017-11-08 | Outpatient (REF) | payer MEDICARE, MEDICAID | LOC: M SFHCPLAZ 10:46 | DX: R56.9 Unspecified convulsions (principal); Z53.8 Procedure and treatment not carried out for other reasons ==

== ENCOUNTER 2017-12-18 10:20 | Emergency (ER) | payer MEDICARE, MEDICAID ==
[2017-12-18] MEDS: ALBUTEROL SULFATE 2.5 MG/0.5 ML INH NEB SOLN NEB ×2 (11:04→12:08)
== END 2017-12-18 12:25 | disposition home or self-care (01) ==
LOC: M ED 10:20
DX: H66.91 Otitis media, unspecified, right ear (principal); R06.02 Shortness of breath; G40.909 Epilepsy, unspecified, not intractable, without status epilepticus; F41.9 Anxiety disorder, unspecified; F33.9 Major depressive disorder, recurrent, unspecified; B19.20 Unspecified viral hepatitis C without hepatic coma; K21.9 Gastro-esophageal reflux disease without esophagitis; F19.10 Other psychoactive substance abuse, uncomplicated; Z79.899 Other long term (current) drug therapy; Z88.1 Allergy status to other antibiotic agents
CPT/HCPCS: 71046

== ENCOUNTER → 2017-12-21 | Outpatient (REF) | payer MEDICARE, MEDICAID ==
[2017-12-21 13:32] LABS: APPEARANCE, URINE CLEAR (CLEAR); BACTERIA, URINE AUTO NEGATIVE (NEGATIVE); BILIRUBIN, URINE AUTO NEGATIVE (NEGATIVE); BLOOD, URINE BLOOD NEGATIVE (NEGATIVE); COLOR, URINE STRAW (YELLOW); GLUCOSE, URINE (UA) AUTO NEGATIVE (NEGATIVE); KETONE, URINE AUTO NEGATIVE (NEGATIVE); LEUKOCYTE ESTERASE, URINE AUTO NEGATIVE (NEGATIVE); NITRITE, URINE AUTO NEGATIVE (NEGATIVE); PROTEIN, URINE AUTO NEGATIVE (NEGATIVE); RBC, URINE AUTO 0 /HPF (0-3); SPECIFIC GRAVITY URINE AUTO 1.006 (1.002-1.035); SQUAMOUS EPITHELIAL CELL UR AU 1 /HPF (0-6); UROBILINOGEN, URINE AUTO 0.2 mg/dL (0.0-2.0); WBC, URINE AUTO 0 /HPF (0-3)
[2017-12-21 15:31] LABS: ANION GAP 12 MEQ/L (8-16); BLOOD UREA NITROGEN 11 MG/DL (7-18); CALCIUM LEVEL 9.1 MG/DL (8.5-10.1); CARBON DIOXIDE LEVEL 24 MEQ/L (21-32); CHLORIDE LEVEL 104 MEQ/L (98-107); CREATININE FOR GFR 0.94 MG/DL (0.55-1.30); GLOMERULAR FILTRATION RATE > 60.0 (>58); GLUCOSE, FASTING 72 MG/DL (70-100); POTASSIUM SERUM 4.7 MEQ/L (3.5-5.1); SODIUM LEVEL 140 MEQ/L (136-145)
[2017-12-22 10:43] LABS: HIV 1&2 SCREEN CENTAUR NEGATIVE (NEGATIVE)
== END ==
LOC: M SFHCPLAZ 10:30
DX: Z20.6 Contact with and (suspected) exposure to human immunodeficiency virus [HIV] (principal); Z23 Encounter for immunization
CPT/HCPCS: 80048

== ENCOUNTER → 2018-02-21 | Outpatient (REF) | payer MEDICARE, MEDICAID ==
[2018-02-21 14:52] LABS: AMPHETAMINES URINE REFLEX NEGATIVE (NEGATIVE); BARBITURATES URINE REFLEX NEGATIVE (NEGATIVE); BENZODIAZEPINES URINE REFLEX NEGATIVE (NEGATIVE); CANNABINOIDS URINE REFLEX NEGATIVE (NEGATIVE); COCAINE METABOLITE URINE REFLE NEGATIVE (NEGATIVE); METHADONE URINE REFLEX NEGATIVE (NEGATIVE); OPIATES URINE REFLEX NEGATIVE (NEGATIVE); PHENCYCLIDINE URINE REFLEX NEGATIVE (NEGATIVE)
== END ==
LOC: M SFHCPLAZ 13:03
DX: Z51.81 Encounter for therapeutic drug level monitoring (principal); Z79.899 Other long term (current) drug therapy
CPT/HCPCS: 80307

== ENCOUNTER 2018-03-13 13:28 | Emergency (ER) | payer MEDICARE, MEDICAID ==
[2018-03-13] MEDS: NICOTINE 21MG/24HR 1 EA TRANSDERMAL TD (14:15)
[2018-03-13 14:41] LABS: HEMATOCRIT 36.5 % (36.0-47.0); MEAN CORPUSCULAR HGB CONC 32.9 g/dl (32.0-36.5); MEAN CORPUSCULAR VOLUME 88.2 fl (80.0-96.0); PLATELET COUNT, AUTOMATED 247 10^3/uL (150-450); RED BLOOD COUNT 4.14 10^6/uL (4.00-5.40); RED CELL DISTRIBUTION WIDTH 15.6 % (11.5-14.5); WHITE BLOOD COUNT 9.5 10^3/uL (4.0-10.0)
[2018-03-13 15:04] LABS: ACETAMINOPHEN LEVEL < 2.0 UG/ML (10.0-30.0); ALBUMIN 3.5 GM/DL (3.2-5.2); ALKALINE PHOSPHATASE 44 U/L (45-117); ALT/SGPT 19 U/L (12-78); ANION GAP 7 MEQ/L (8-16); AST/SGOT 13 U/L (7-37); BILIRUBIN,DIRECT 0.2 MG/DL (0.0-0.2); BILIRUBIN,TOTAL 0.5 MG/DL (0.2-1.0); BLOOD UREA NITROGEN 9 MG/DL (7-18); CALCIUM LEVEL 8.4 MG/DL (8.5-10.1); CARBON DIOXIDE LEVEL 26 MEQ/L (21-32); CHLORIDE LEVEL 104 MEQ/L (98-107); CREATININE FOR GFR 1.33 MG/DL (0.55-1.30); ETHYL ALCOHOL (ETHANOL) < 0.003 % (0.000-0.010); GLOMERULAR FILTRATION RATE 46.8 (>58); GLUCOSE, FASTING 89 MG/DL (70-100); POTASSIUM SERUM 4.1 MEQ/L (3.5-5.1); SALICYLATE LEVEL 3.7 MG/DL (5.0-30.0); SODIUM LEVEL 137 MEQ/L (136-145); THYROID STIMULATING HORMONE 0.739 uIU/ML (0.358-3.740); TOTAL PROTEIN 7.4 GM/DL (6.4-8.2)
[2018-03-13 16:11] LABS: AMPHETAMINES LEVEL URINE NEGATIVE (NEGATIVE); BARBITURATES URINE NEGATIVE (NEGATIVE); BENZODIAZEPINES URINE NEGATIVE (NEGATIVE); CANNABINOIDS URINE NEGATIVE (NEGATIVE); COCAINE METABOLITE URINE POSITIVE (NEGATIVE); METHADONE URINE NEGATIVE (NEGATIVE); OPIATES URINE NEGATIVE (NEGATIVE); PHENCYCLIDINE URINE NEGATIVE (NEGATIVE)
== END 2018-03-13 21:05 | disposition home or self-care (01) ==
LOC: M ED 13:28
DX: R45.851 Suicidal ideations (principal); F60.9 Personality disorder, unspecified; F19.10 Other psychoactive substance abuse, uncomplicated; G40.909 Epilepsy, unspecified, not intractable, without status epilepticus; B19.20 Unspecified viral hepatitis C without hepatic coma; Z79.899 Other long term (current) drug therapy; Z88.1 Allergy status to other antibiotic agents; F17.210 Nicotine dependence, cigarettes, uncomplicated
CPT/HCPCS: 93005

== ENCOUNTER 2018-04-12 13:45 | Inpatient (IN) | payer MEDICARE, MEDICAID ==
[~2018-04-12] VITALS: Ht 160 cm; Wt 117.0 kg
[~2018-04-12 13:45] MED LIST changes: -CLON2TAB PO; +CLON2TAB7 PO; -GABA-282 PO; -GABA-283 PO; +GABA-843 PO; +GABA-845 PO; -GABA800T PO; +GABA800T4 PO; +HYDR50TA70; +LORA10TA3 PO; +NAPR-50 PO; -NAPR500T PO; +OXYC10TA3 PO; +TIZANIDINE PO; +TRAZ-160; -TRAZ50TA11; +VENTAER INH; +ZITHTAB PO
[2018-04-12] MEDS ORDERED: NS 1,000 ML IV ONE ×2 (14:00→16:00)
[2018-04-12 14:09] LABS: BASO % 0.2 % (0.0-1.0); EOS % 0.4 % (0.0-3.0); HEMATOCRIT 37.8 % (36.0-47.0); HEMOGLOBIN 12.3 g/dl (12.0-15.5); LYMPH # 2.2 10^3/uL (1.5-4.5); LYMPH % 26.8 % (24.0-44.0); MEAN CORPUSCULAR HEMOGLOBIN 28.9 pg (27.0-33.0); MEAN CORPUSCULAR HGB CONC 32.5 g/dl (32.0-36.5); MEAN CORPUSCULAR VOLUME 88.9 fl (80.0-96.0); MONO # 0.7 10^3/uL (0.0-0.8); MONO % 8.6 % (0.0-5.0); NEUTROPHILS # 5.3 10^3/uL (1.8-7.7); NEUTROPHILS % 63.6 % (36.0-66.0); PLATELET COUNT, AUTOMATED 295 10^3/uL (150-450); RED BLOOD COUNT 4.25 10^6/uL (4.00-5.40); WHITE BLOOD COUNT 8.4 10^3/uL (4.0-10.0)
[2018-04-12] MEDS ORDERED: ZANA4TAB PO (14:10)
[2018-04-12] MEDS ORDERED: OXYC10TA12 PO (14:11)
[2018-04-12] MEDS ORDERED: CYCL10TA PO (14:11)
[2018-04-12 14:14] LABS: ABG HCO3 26.9 MEQ/L (22.0-26.0); ABG O2 SATURATION 97.2 % (95.0-99.0); ABG PARTIAL PRESSURE CO2 48.1 mmHg (35.0-45.0); ABG PARTIAL PRESSURE O2 97.5 mmHg (75.0-100.0); ABG STANDARD HCO3 25.3 MEQ/L (22.0-26.0); ABG TOTAL CO2 28.4 MEQ/L (22.0-29.0); ABG pH (ARTERIAL) 7.366 UNITS (7.350-7.450)
[2018-04-12] MEDS ORDERED: PROAAER10 INH (14:14)
[2018-04-12 14:37] LABS: HCG, SERUM QUALITATIVE NEGATIVE (NEGATIVE)
[2018-04-12 14:59] LABS: AMPHETAMINES LEVEL URINE NEGATIVE (NEGATIVE); BARBITURATES URINE NEGATIVE (NEGATIVE); BENZODIAZEPINES URINE POSITIVE (NEGATIVE); CANNABINOIDS URINE NEGATIVE (NEGATIVE); COCAINE METABOLITE URINE POSITIVE (NEGATIVE); METHADONE URINE NEGATIVE (NEGATIVE); OPIATES URINE POSITIVE (NEGATIVE); PHENCYCLIDINE URINE NEGATIVE (NEGATIVE)
[2018-04-12 15:10] LABS: ACETAMINOPHEN LEVEL < 2.0 UG/ML (10.0-30.0); ALBUMIN 3.2 GM/DL (3.2-5.2); ALT/SGPT 26 U/L (12-78); BILIRUBIN,DIRECT 0.1 MG/DL (0.0-0.2); BILIRUBIN,TOTAL 0.4 MG/DL (0.2-1.0); BLOOD UREA NITROGEN 7 MG/DL (7-18); CALCIUM LEVEL 8.3 MG/DL (8.5-10.1); CARBON DIOXIDE LEVEL 26 MEQ/L (21-32); CHLORIDE LEVEL 101 MEQ/L (98-107); CPK CREATINE PHOSPHOKINASE 27 U/L (26-192); CREATININE FOR GFR 1.33 MG/DL (0.55-1.30); ETHYL ALCOHOL (ETHANOL) < 0.003 % (0.000-0.010); GLOMERULAR FILTRATION RATE 46.8 (>58); GLUCOSE, FASTING 256 MG/DL (70-100); POTASSIUM SERUM 4.2 MEQ/L (3.5-5.1); SALICYLATE LEVEL 2.7 MG/DL (5.0-30.0); SODIUM LEVEL 137 MEQ/L (136-145); THYROID STIMULATING HORMONE 0.724 uIU/ML (0.358-3.740); TOTAL PROTEIN 6.9 GM/DL (6.4-8.2)
[2018-04-12 15:13] LABS: CK-MB VALUE MASS < 1.0 NG/ML (<3.6); TROPONIN I < 0.02 NG/ML (< 0.10)
[2018-04-12] MEDS ORDERED: ATROPINE SULF 0.4 MG/ML 1ML VIAL (J0461) IV STA ×2 (15:51→16:29)
--- NOTE | 2018-04-12 16:05 | REP ---
Oral chest x-ray: Single view. History: Drug overdose. Comparison study: December 18, 2017. Findings: EKG monitoring electrodes overlie the chest. Oxygen delivery tubing is seen. The lungs are exposed at a relatively low level of inspiration. Vascular markings are somewhat crowded at the bases, probably as a result of level of inspiration. No infiltrate is seen. No pleural effusion is noted. Impression: Low level of inspiration. Otherwise no acute disease. Electronically Signed by Rad Greenwood MD 04/12/2018 06:15 P
[2018-04-12] MEDS: NS 1,000 ML IV SCH (17:07)
[2018-04-12] MEDS ORDERED: NS 1,000 ML IV SCH (17:07)
--- NOTE | 2018-04-12 18:07 | HPE ---
DATE OF ADMISSION: 04/12/2018 This is a 42-year-old female with past medical history of gastroesophageal reflux disease (GERD), polysubstance abuse, depression who presents to the emergency room after being found extremely lethargic and then becoming unresponsive during midday today. The ivonne was the one who found her. He said in the morning she was fine, but around noon he saw the patient getting a bowl of ice cream. He went to the bathroom and came back out. She started to slur her speech and became more and more lethargic and then slumped over. The mother called 911. En route, the patient was given Narcan 1 mg with no response. The patient then came to the emergency room (ER) and was found to be bradycardic in the 40s. Was given 0.5 of atropine and currently her heart rate is between 50-60. Her blood pressures never dropped. Her end-tidal CO2 is 43 and has maintained that number throughout the course of the ER visit. She is still unresponsive and only responds to painful stimuli. Poison control was called, and their recommendations was to use atropine as needed and supportive. They mentioned that the bradycardia is likely secondary to the tizanidine that she apparently overdosed on, and that fact was contributed through the ivonne, who found the empty bottle of tizanidine on the counter when they first called 911. The patient will be admitted to the intensive care unit (ICU) for further management. PAST MEDICAL HISTORY: 1. Polysubstance abuse. 2. Depression. 3. Gastroesophageal reflux disease (GERD). 4. Asthma. DRUG ALLERGIES: CEPHALOSPORINS. FAMILY HISTORY: Could not be assessed. Patient is obtunded. SOCIAL HISTORY: Could not be assessed. Patient is obtunded. HOME MEDICATIONS: - albuterol two puffs inhaled every 4 as needed - cyclobenzaprine 10 mg orally at bedtime as needed - Dulcolax 100 mg orally twice daily as needed - omeprazole 40 mg orally daily - loratadine 10 mg orally daily as needed - lorazepam 0.5 mg orally daily as needed - oxycodone 10 mg orally three times a day as needed - oxycodone/acetaminophen 10/325 one tablet orally four times a day as needed - pregabalin 75 mg orally three times a day as needed - tizanidine 4 mg orally every 8 hours as needed REVIEW OF SYSTEMS: Could not be assessed. Patient is obtunded. VITAL SIGNS: Blood pressure is 101/62, heart rate is 50 and regular, respiratory rate is 18, temperature 96.6, oxygen saturation 100% on 3 liters nasal cannula. HEAD: Atraumatic, normocephalic. Pupils are equal and reactive to light. Normal mucous membranes. LUNGS: Clear to auscultation. S1, S2 audible. No murmurs appreciated. ABDOMEN: Soft. Positive bowel sounds. No pedal edema. SKIN: Intact. NEUROLOGIC: Patient is obtunded. LABORATORY DATA: Urinalysis (UA) is negative for urinary tract infection (UTI). Sodium 137, potassium 4.2, chloride 101, CO2 of 26, anion gap 10, BUN 7, creatinine 1.33, lactic acid 2.2, glucose 256, calcium 8.3. TSH is 0.724, troponin is less than 0.02. WBC 8.4, hemoglobin is 12.3, hematocrit is 37.8, platelets are 295,000. Arterial blood gas: A pH of 7.366, pCO2 is 48.1, pO2 is 97.5. Urine toxicology screen is positive for opiates, cocaine, and benzodiazepines. IMPRESSION: 1. Acute drug overdose. PLAN: Patient is to be admitted to the intensive care unit (ICU). Will have atropine at bedside. If necessary will use it to maintain her heart rate above 40. Again, her blood pressures never have been an issue and never dropped. According to poison control, her creatine kinase (CK) should be checked periodically. Her first in the ER was normal. Will have another checked at 10 o'clock tonight. Will continue IV fluids, normal saline at 125 mL an hour and will put a one-to-one sitter, because it is questionable whether this was a suicide attempt or not. Once she is stable and awake, we will ask that and her history and see if a psychiatric evaluation is necessary. Will obviously keep her nothing by mouth until she is awake and alert and will continue following her care in the ICU. TOTAL CRITICAL CARE TIME: 35 minutes.
[2018-04-12] MEDS ORDERED: NS 500 ML IV ONE (19:00)
--- NOTE | 2018-04-12 20:11 | ECGEPIP ---
Stationary ECG Study [facility] - ED Test Date: 2018-04-12 Pat Name: YAN ANG Department: Room: - Gender: F Movement Therapist: bert : 1975 Requested By: Hanna Addison Order Number: [id number] Reading MD: Hanna Addison Measurements Intervals [place] Rate: 58 P: 62 MO: 167 QRS: 20 QRSD: 105 T: 3 QT: 444 QTc: 436 Interpretive Statements SINUS BRADYCARDIA INCOMPLETE RIGHT BUNDLE BRANCH BLOCK 03/13/[address] T WAVE CHANGES Electronically Signed On 04-12-2018 20:11:48 EST by Hanna Addison
[2018-04-12 20:12] VITALS: BP 106/55
[2018-04-12 21:00] VITALS: BP 108/56
[2018-04-12] MEDS ORDERED: ATROPINE SULF 1MG/10ML SYRINGE (J0461) IV PRN (21:00)
[2018-04-12 22:00] VITALS: BP 102/58
[2018-04-12 23:00] VITALS: BP 95/53
[2018-04-13] VITALS (11 sets, daily range): BP systolic 94–186; BP diastolic 52–114
[2018-04-13] MEDS: NS 1,000 ML IV SCH ×3 (01:07→15:22)
[2018-04-13 05:15] LABS: BASO % 0.1 % (0.0-1.0); EOS # 0.1 10^3/uL (0.0-0.50); EOS % 0.9 % (0.0-3.0); HEMATOCRIT 36.9 % (36.0-47.0); HEMOGLOBIN 11.7 g/dl (12.0-15.5); LYMPH # 2.9 10^3/uL (1.5-4.5); LYMPH % 38.3 % (24.0-44.0); MEAN CORPUSCULAR HEMOGLOBIN 28.6 pg (27.0-33.0); MEAN CORPUSCULAR HGB CONC 31.7 g/dl (32.0-36.5); MEAN CORPUSCULAR VOLUME 90.2 fl (80.0-96.0); MONO # 0.5 10^3/uL (0.0-0.8); MONO % 6.9 % (0.0-5.0); NEUTROPHILS # 4.1 10^3/uL (1.8-7.7); NEUTROPHILS % 53.5 % (36.0-66.0); PLATELET COUNT, AUTOMATED 221 10^3/uL (150-450); RED BLOOD COUNT 4.09 10^6/uL (4.00-5.40); WHITE BLOOD COUNT 7.6 10^3/uL (4.0-10.0)
[2018-04-13 05:37] LABS: ALBUMIN 2.8 GM/DL (3.2-5.2); ALT/SGPT 24 U/L (12-78); BILIRUBIN,TOTAL 0.2 MG/DL (0.2-1.0); BLOOD UREA NITROGEN 5 MG/DL (7-18); CALCIUM LEVEL 7.7 MG/DL (8.5-10.1); CARBON DIOXIDE LEVEL 23 MEQ/L (21-32); CHLORIDE LEVEL 109 MEQ/L (98-107); CREATININE FOR GFR 0.95 MG/DL (0.55-1.30); GLOMERULAR FILTRATION RATE > 60.0 (>58); GLUCOSE, FASTING 98 MG/DL (70-100); POTASSIUM SERUM 3.8 MEQ/L (3.5-5.1); SODIUM LEVEL 140 MEQ/L (136-145); TOTAL PROTEIN 6.2 GM/DL (6.4-8.2)
--- NOTE | 2018-04-13 16:01 | MHCRPDOC ---
[facility] Consultation Consultation DATE OF CONSULTATION: 04/13/18 CONSULTATION REQUESTED BY: Dr. MARQUEZ REASON FOR CONSULTATION: SI, depression RELEVANT HISTORY: Per medical admit note: "This is a 42-year-old female with past medical history of gastroesophageal reflux disease (GERD), polysubstance abuse, depression who presents to the emergency room after being found extremely lethargic and then becoming unresponsive during midday today. The ivonne was the one who found her. He said in the morning she was fine, but around noon he saw the patient getting a bowl of ice cream. He went to the bathroom and came back out. She started to slur her speech and became more and more lethargic and then slumped over. The mother called 911. En route, the patient was given Narcan 1 mg with no response. The patient then came to the emergency room (ER) and was found to be bradycardic in the 40s. Was given 0.5 of atropine and currently her heart rate is between 50-60. Her blood pressures never dropped. Her end-tidal CO2 is 43 and has maintained that number throughout the course of the ER visit. She is still unresponsive and only responds to painful stimuli. Poison control was called, and their recommendations was to use atropine as needed and supportive. They mentioned that the bradycardia is likely secondary to the tizanidine that she apparently overdosed on, and that fact was contributed through the ivonne, who found the empty bottle of tizanidine on the counter when they first called 911. The patient will be admitted to the intensive care unit (ICU) for further management." Asked to do consult for pt due to possible SI and OD taking one extra tizanidine more than prescribed which caused her to be symptomatic as stated above. Medical contact poison control and following treatment recommendations. She is being treated within the ICU until medical maria g. Per medical pt denies SA and states made a mistake. She has a history of substance abuse. Pt seen in ICU today and states she's doing good. States she never meant to harm herself or was even having any thoughts of suicide not even recently and took 2-3 extra tinzanidine "b/c I was in so much pain from my back." Pt also admitted to drink 3 beers with a friend after not having used in 1.5yrs and states she "messed up" and did "just wanted to." She denied any craving secondary to alcohol. She also used cocaine which she also regrets. She states she has a supportive boyfriend who has been visiting with her in the hospital and is looking forward to going home with him so she can get back to her daily life. Future oriented to rescheduled missed PCP appt she had today. States outright "I don't want to ... I have to get back to my life." She denies depression, anxiety, insomnia, SI/HI, hallucinations, delusions. Feels safe to be w/o sitter and to go home. Told will recommend [facility] follow-up for substance abuse treatment. PAST PSYCHIATRIC HISTORY: Based on interviews, records: H/o 3 prior psychiatric hospitalizations with the most recent one in [address] [facility] H/o outpatient psychiatric follow-up with Dr. López in the past but not current No prior h/o SA as per patient, SI once at age when a teen with plan to shoot self, denies since . accidental OD on Klonopin, cocaine, OxyContin she was abusing - history of depression, anxiety, substance abuse (benzodiazepines, cocaine, alcohol, heroin, opiates) Utox positive cocaine, opiates, benzodiazepines. BAL less than 0.03 (Pt states "I messed up last night, I had been doing well for 1.5yrsa) PAST MEDICAL HISTORY: 1. Polysubstance abuse. 2. Depression. 3. Gastroesophageal reflux disease (GERD). 4. Asthma. FAMILY HISTORY: Patient denied any family history of mental illness, substance abuse or suicide. PERSONAL AND SOCIAL HISTORY: The patient was born and raised in [facility] [place] by mother. Her father when she was 13 years old in an accident. She has one elder brother. She is engaged to her boyfriend. She completed 10th grade level of education. Resides in: [place] with boyfriend Marital Status: S Single Children: 2 children (18 y/o boy and 13 y/o boy) Employment: Unemployed and receives disability benefits. SUBSTANCE ABUSE HISTORY: Smokin ppd ETOH: occasionally Illicit Drugs: history of cocaine, heroin, opioid, benzo abuse LEGAL HISTORY: denies MENTAL STATUS EXAMINATION: Patient is a 42-year old female, who is lying in hospital bed in hospital gown calm and cooperative Speech is regular rate/rhythm/volume Language skills are average Thought processes including: linear, logical, future oriented toward follow-up with PCP that she missed due to being here today Thought content: denies SI/HI "I don't want to ." Abstract reasoning, and computation: intact Description of associations: appropriate Description of abnormal or psychotic thoughts: denies Judgment: fair regarding substance abuse, good regarding mental health and safety Insight: fair regarding substance abuse, good regarding mental health and safety Orientation to 3 Recent and remote memory: intact Attention span and concentration: good, slightly fatigued Language: appropriate Fund of knowledge: average Mood: "good" Affect: euthymic, calm, full DIAGNOSIS: Benzodiazepine Use disorder Stimulant Use disorder Opioid Use disorder Chronic pain PLAN: D/C 1:1 sitter, pt denies SI Pt safe to d/c home per medicine once cleared medically [facility] follow-up for substance abuse treatment Vital Signs Vital Signs Date Time Temp Pulse Resp B/P (MAP) Pulse Ox O2 Delivery O2 Flow Rate FiO2 04/13/18 12:00 97.5 43 16 138/63 (88) 98 Room Air 04/12/18 19:31 2.0 Laboratory Data 24H Labs Laboratory Tests 2 04/12/18 18:35: Lactic Acid Followup at 4 Hours 2.0 04/12/18 21:59: Total Creatine Kinase 27 04/13/18 04:46: Immature Granulocyte % (Auto) 0.3, White Blood Count 7.6, Red Blood Count 4.09, Hemoglobin 11.7L, Hematocrit 36.9, Mean Corpuscular Volume 90.2, Mean Corpuscular Hemoglobin 28.6, Mean Corpuscular Hemoglobin Concent 31.7L, Red Cell Distribution Width 15.9H, Platelet Count 221, Neutrophils (%) (Auto) 53.5, Lymphocytes (%) (Auto) 38.3, Monocytes (%) (Auto) 6.9H, Eosinophils (%) (Auto) 0 .9, Basophils (%) (Auto) 0.1, Neutrophils # (Auto) 4.1, Lymphocytes # (Auto) 2.9, Monocytes # (Auto) 0.5, Eosinophils # (Auto) 0.1, Basophils # (Auto) 0.0, Nucleated Red Blood Cells % (auto) 0.0, Anion Gap 8, Glomerular Filtration Rate > 60.0, Blood Urea Nitrogen 5L, Creatinine 0.95, Sodium Level 140, Potassium Level 3.8, Chloride Level 109H, Carbon Dioxide Level 23, Calcium Level 7.7L, Aspartate Amino Transf (AST/SGOT) 15, Alanine Aminotransferase (ALT/SGPT) 24, Alkaline Phosphatase 41L, Total Bilirubin 0.2, Total Protein 6.2L, Albumin 2.8L, Albumin/Globulin Ratio 0.82L Home Medications Current Medications Current Medications Atropine Sulfate (Atropine Sulfate) 0.5 mg Q1HP PRN IV SEE LABEL COMMENTS; S tart 04/12/18 at 21:00 Atropine Sulfate (Atropine Sulfate) 0.5 mg STAT STAT IV Last administered on 04/12/18at 15:56; Start 04/12/18 at 15:51; Stop 04/12/18 at 15:52; Status DC Atropine Sulfate (Atropine Sulfate) 0.5 mg STAT STAT IV Last administered on 04/12/18at 16:33; Start 04/12/18 at 16:29; Stop 04/12/18 at 16:30; Status DC Home Med (Med Rec Complete!) ASDIRECTED XX ; Start 04/12/18 at 14:15; Stop 04/12/18 at 14:16; Status DC Sodium Chloride 1,000 ml @ 125 mls/hr Q8H IV ; Start 04/12/18 at 17:07; Stop 04/12/18 at 17:14; Status DC Sodium Chloride 1,000 ml @ 125 mls/hr Q8H IV Last administered on 04/13/18at 08:00; Start 04/12/18 at 17:07 Scheduled Esomeprazole Magnesium Trihydr (Nexium) 40 Mg Cap, 40 MG PO DAILY for HEARTBURN, (Reported) Scheduled PRN (Dulcolax Stool Softener) 100 Mg Cap, 100 MG PO BID PRN for CONSTIPATION, (Reported) (Oxycodone/Acetaminophen 10-325 mg) 1 Tab Tab, 1 TAB PO QID PRN for PAIN, (Reported) Albuterol Sulfate (Proair Hfa) 108 Mcg/Act Aer, 2 PUFF INH Q4H PRN for SHORTNESS OF BREATH, (Reported) Cyclobenzaprine HCl (Cyclobenzaprine HCl) 10 Mg Tab, 10 MG PO QHS PRN for MUSCLE SPASMS, (Reported) Loratadine (Loratadine) 10 Mg Tab, 10 MG PO DAILY PRN for ALLERGY SYMPTOMS, (Reported) Lorazepam (Lorazepam) 0.5 Mg Tab, 0.5 MG PO DAILY PRN for ANXIETY/AGITATION, (Reported) Oxycodone HCl (Oxycodone HCl) 10 Mg Tab, 10 MG PO TID PRN for PAIN, (Reported) Pregabalin (Lyrica) 75 Mg Cap, 75 MG PO TID PRN for ANXIETY/AGITATION, (Reported) Tizanidine Hydrochloride (Zanaflex) 4 Mg Tab, 4 MG PO Q8H PRN for MUSCLE SPASMS, (Reported) Allergies Coded Allergies: Cephalosporins (Verified Allergy, Intermediate, HIVES, 10/24/16) MAYITO HANEY DO Apr 13, 2018 15:18
--- NOTE | 2018-04-13 17:16 | DSES ---
DATE OF ADMISSION: 04/12/2018 DATE OF DISCHARGE: 04/13/2018 CONSULTANTS: Psychiatry. DISCHARGE DIAGNOSES: 1. Acute metabolic encephalopathy secondary to drug overuse. 2. Bradycardia secondary to medication adverse effect. 3. History of polysubstance abuse. 4. Depression. 5. Gastroesophageal reflux disease (GERD). 6. Asthma. 7. Cocaine usage. HOSPITALIZATION COURSE: The patient is a 42-year-old female who was brought to [facility] on 04/12/2018 after she was found unresponsive at home. According to the fiance, there was an empty bottle of tizanidine on the counter when 911 was called. In the emergency room, the patient was found to have bradycardia. Poison Control was contacted and explained bradycardia is possibly secondary to tizanidine. Two doses of atropine were given for bradycardia per recommendations and the patient was admitted to the intensive care unit (ICU) under the hospitalist service. Later, the patient started having improvement in her mentation, able to tolerate oral intake and diet was advanced. Poison Control signed off the case. The psychiatrist was consulted, and the sitter was discontinued. The patient worked with physical therapy (PT). They mentioned no functional impairment, and the patient was determined to be stable for discharge with recommendations to follow with the primary care provider in 1 week. The patient is also recommended to stop taking tizanidine. During the admission, urine toxicology was performed and urine toxicology was positive for opioids, benzodiazepine, and cocaine. During questioning, the patient states that she was taking extra pills for her pain and she did not overuse the medication to hurt herself. Upon discharge, the patient's home medications were reviewed. Most recent primary care provider progress note was reviewed. On home medication list, the patient has multiple high dose pain medications, benzodiazepine, and two muscle relaxants. The patient's medications were adjusted prior to discharge. OBJECTIVE: VITAL SIGNS: Temperature 97.5, pulse 43, respirations 16, blood pressure 138/63, pulse oximetry 98% on room air. LABORATORY DATA: WBC of 7.6, hemoglobin 11.7, hematocrit 36.9, platelet count is 221. Sodium is 140, potassium 3.8, chloride 109, carbon dioxide 23, BUN 5, creatinine 0.95, GFR greater than 60, fasting glucose 98, calcium is 7.7, total bilirubin is 0.2, AST 15, ALT 24, alkaline phosphatase 41, total protein is 6.2, albumin 2.8. Urinalysis negative. Urine toxicology is positive for opiates, benzodiazepine, and cocaine. Alcohol level negative. Imaging studies: Chest x-ray showed low level inspiration, otherwise no acute disease. DISCHARGE MEDICATIONS: - ProAir two puff inhalation every 4 hours as needed - cyclobenzaprine 10 mg by mouth at night as needed - Dulcolax 100 mg by mouth twice a day as needed - Nexium 40 mg by mouth daily - loratadine 10 mg by mouth daily as needed - lorazepam 0.5 mg by mouth daily as needed - OxyContin 10 mg by mouth three times a day as needed - Lyrica 75 mg by mouth three times a day as needed - Percocet 10/325 mg one tablet by mouth four times a day was discontinued - Zanaflex 4 mg by mouth every 8 hours is discontinued DISCHARGE INSTRUCTIONS: Discontinue line. Discharge home. Activity as tolerated. Low cholesterol diet as tolerated. The patient should be conscious regarding muscle relaxant use and narcotics. The patient should followup with her primary care provider, Dr. Yoni Proctor, in 1 week. Discharge condition: Fair. Discharge time: Greater than 30 minutes. edited: 04/14/2018 0716 [id number] [id number]
== END 2018-04-13 17:40 | disposition home or self-care (01) | DRG 917 ==
LOC: M ED 13:45 → M ED INP 17:07 → M ICU 20:11
PROVIDERS: ADMIT Internal Medicine; ATTEND Internal Medicine
DX: T42.8X1A Poisoning by antiparkinsonism drugs and other central muscle-tone depressants, accidental (unintentional), initial encounter (principal); G92 Toxic encephalopathy; G89.29 Other chronic pain; F32.9 Major depressive disorder, single episode, unspecified; J45.909 Unspecified asthma, uncomplicated; K21.9 Gastro-esophageal reflux disease without esophagitis; R00.1 Bradycardia, unspecified; F11.10 Opioid abuse, uncomplicated; F15.10 Other stimulant abuse, uncomplicated; Z79.899 Other long term (current) drug therapy; Z88.1 Allergy status to other antibiotic agents